=== PATIENT | male | born 1990 | race American Indian/Alaskan Native ===

== ENCOUNTER 2017-03-23 22:47 | Emergency (ER) | payer OTHER ==
[2017-03-23] MEDS ORDERED: PERCOCET 5/325 PO ONE (23:04)
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
[2017-03-24 00:16] VITALS: BP 121/61
[2017-03-24] MEDS ORDERED: MORPHINE IV ONE (00:33)
[2017-03-24] MEDS ORDERED: TORADOL IV ONE (00:33)
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
== END 2017-03-24 01:12 | disposition home or self-care (01) ==
LOC: ED 22:47
DX: R07.89 Other chest pain (principal); R51 Headache; M54.6 Pain in thoracic spine; V49.49XA Driver injured in collision with other motor vehicles in traffic accident, initial encounter; X58.XXXA Exposure to other specified factors, initial encounter; Y93.9 Activity, unspecified; Y92.9 Unspecified place or not applicable; Y99.9 Unspecified external cause status
CPT/HCPCS: 70450; 71020; 72070; 72125; 93005; 93010; 96374; 96375; 99284; J1885; J2270